=== PATIENT | female | born 1970 | race Caucasian/White ===

== ENCOUNTER 2017-12-07 17:43 | Emergency (ER) | payer BC, MEDICAID ==
[~2017-12-07] VITALS: Ht 165.1 cm; Wt 70.0 kg
[2017-12-07 18:16] LABS: BASOPHILS # (AUTO) 0.1 X10'3 (0-0.2); BASOPHILS % (AUTO) 0.9 % (0-1); EOSINOPHILS # (AUTO) 0.2 X10'3 (0-0.9); EOSINOPHILS % (AUTO) 2.1 % (0-6); HEMATOCRIT 41.3 % (35.0-45.0); HEMOGLOBIN 14.6 g/dl (12.0-16.0); LYMPHOCYTES # (AUTO) 2.2 X10'3 (1.1-4.8); LYMPHOCYTES % (AUTO) 25.1 % (21-51); MEAN CORPUSCULAR HEMOGLOBIN 30.4 PG (27.0-31.0); MEAN CORPUSCULAR HGB CONC 35.2 % (33.0-36.5); MEAN CORPUSCULAR VOLUME 86.3 FL (78-98); MEAN PLATELET VOLUME 8.2 FL (7.4-10.4); MONOCYTES # (AUTO) 0.6 X10'3 (0-0.9); MONOCYTES % (AUTO) 6.5 % (2-12); NEUTROPHILS # (AUTO) 5.8 X10'3 (1.8-7.7); NEUTROPHILS % (AUTO) 65.4 % (42-75); PLATELET COUNT 311 X10'3 (140-440); RED BLOOD COUNT 4.79 X10'6 (4.20-5.60); RED CELL DISTRIBUTION WIDTH 12.4 % (11.5-14.5); WHITE BLOOD COUNT 8.9 X10'3 (4.5-11.0)
[2017-12-07 18:28] LABS: INR 0.9 INR; PARTIAL THROMBOPLASTIN TIME 25 SECONDS (22-32); PROTHROMBIN TIME 9.4 SECONDS (9.0-12.0)
[2017-12-07 18:37] LABS: ALANINE AMINOTRANSFERASE 29 U/L (12-78); ALBUMIN 4.2 G/DL (3.4-5.0); ALBUMIN/GLOBULIN RATIO 1.2 (1.1-1.5); ALKALINE PHOSPHATASE 74 IU/L (46-116); ANION GAP 8 (8-16); ASPARTATE AMINO TRANSFERASE 13 U/L (10-37); BILIRUBIN,TOTAL 0.3 MG/DL (0.1-1.0); BLOOD UREA NITROGEN 14 MG/DL (7-18); BUN/CREATININE RATIO 17.5 (6.6-38.0); CALCIUM 8.8 MG/DL (8.5-10.1); CHLORIDE 105 MMOL/L (99-107); GLUCOSE 95 MG/DL (70-104); POTASSIUM 3.6 MMOL/L (3.5-5.1); SODIUM 143 MMOL/L (135-145); TOTAL CARBON DIOXIDE 29.8 MMOL/L (24-32); TOTAL PROTEIN 7.7 G/DL (6.4-8.2); eGFR 76 ML/MIN
[2017-12-07] MEDS ORDERED: ketorolac tromethamine 15mg/ml inj. IV ONE (19:10)
[2017-12-07] MEDS ORDERED: iohexol 350MG/ML 100ml bottle IV ONE (20:05)
[2017-12-07 21:06] VITALS: BP 122/81
== END 2017-12-07 21:55 | disposition home or self-care (01) ==
LOC: ER 17:43
DX: R07.89 Other chest pain (principal); G89.29 Other chronic pain; F17.200 Nicotine dependence, unspecified, uncomplicated; Z90.710 Acquired absence of both cervix and uterus
CPT/HCPCS: 36415; 71045; 71275; 80053; 84484; 85025; 85379; 85610; 85730; 93005; 96374; 99285; J1885; Q9967

== ENCOUNTER 2020-04-10 05:26 | Day surgery (SDC) | payer BC, MEDICAID ==
[2020-04-01 15:12] LABS: BASOPHILS # (AUTO) 0.1 X10'3 (0-0.2); BASOPHILS % (AUTO) 0.9 % (0-1); EOSINOPHILS # (AUTO) 0.1 X10'3 (0-0.9); EOSINOPHILS % (AUTO) 1.1 % (0-6); LYMPHOCYTES # (AUTO) 2.1 X10'3 (1.1-4.8); LYMPHOCYTES % (AUTO) 26.7 % (21-51); MEAN CORPUSCULAR HEMOGLOBIN 30.5 PG (27.0-31.0); MEAN CORPUSCULAR HGB CONC 34.2 g/dL (33.0-36.5); MEAN CORPUSCULAR VOLUME 89.3 FL (78-98); MEAN PLATELET VOLUME 8.7 FL (7.4-10.4); MONOCYTES # (AUTO) 0.5 X10'3 (0-0.9); MONOCYTES % (AUTO) 6.4 % (2-12); NEUTROPHILS % (AUTO) 64.9 % (42-75); PRE OP HEMATOCRIT 40.2 % (35.0-45.0); PRE OP HEMOGLOBIN 13.7 g/dL (12.0-16.0); PRE OP PLATELET COUNT 297 X10'3 (140-440); RED CELL DISTRIBUTION WIDTH 12.7 % (11.5-14.5)
[2020-04-01 15:26] LABS: ALBUMIN/GLOBULIN RATIO 1.3 (1.1-1.5); ALKALINE PHOSPHATASE 56 IU/L (46-116); BLOOD UREA NITROGEN 24 MG/DL (7-18); BUN/CREATININE RATIO 31.2 (6.6-38.0); CALCIUM 8.9 MG/DL (8.5-10.1); CHLORIDE 106 MMOL/L (99-107); CREATININE 0.77 MG/DL (0.40-0.90); PRE OP ALT 25 U/L (30-65); PRE OP ANION GAP 5 (8-16); PRE OP AST 13 U/L (10-37); PRE OP BILIRUB, TOTAL 0.3 MG/DL (0.0-1.0); PRE OP GLUCOSE 107 MG/DL (70-104); PRE OP SODIUM 142 MMOL/L (135-145); TOTAL CARBON DIOXIDE 31.2 MMOL/L (24-32); eGFR 79 ML/MIN
[~2020-04-10] VITALS: Ht 165.1 cm; Wt 68.0 kg
[2020-04-10] VITALS (9 sets, daily range): BP systolic 105–130; BP diastolic 52–95
[~2020-04-10 05:26] MED LIST: HYDR-3972 PO; IBUP-1984 PO; NAPR-996 PO; ringers solution, lacted 1,000 ML IV SCH
[2020-04-10] MEDS ORDERED: famotidine 20mg tablet PO ONE (05:30)
[2020-04-10] MEDS ORDERED: cefazolin/dext.iso 2gm/50ml 50 ML IV ONE (05:30)
[2020-04-10] MEDS ORDERED: cloNIDine hcl/PF 100mcg/ml inj ONE (07:07)
[2020-04-10] MEDS ORDERED: morphine 2 MG/ML inj. syringe IV PRN (07:15)
[2020-04-10] MEDS ORDERED: ringers solution, lacted 1,000 ML IV SCH (07:15)
[2020-04-10] MEDS ORDERED: ondansetron/PF 4mg/2ml inj IV PRN (07:15)
[2020-04-10] MEDS ORDERED: meperidine/PF 25mg/ml syringe IV PRN ×3 (07:15)
[2020-04-10] MEDS ORDERED: morphine 4 MG/ML inj SYRINge IV PRN (07:15)
[2020-04-10] MEDS ORDERED: proCHLORperazine 10 MG/2 ml inj IV PRN (07:15)
[2020-04-10] MEDS ORDERED: fentaNYL/PF 50MCG/1 ML 2ML syringe ONE (07:19)
[2020-04-10] MEDS ORDERED: midazolam 2 mg/2 ml injection ONE (07:20)
[2020-04-10] MEDS ORDERED: sevoflurane 250ml liquid IH ONE (07:32)
[2020-04-10] MEDS ORDERED: dexamethasone sod phosphate 4mg/ml inj. ONE (08:05)
[2020-04-10] MEDS ORDERED: LIDOcaine 2% (20mg/ml) 5ml vial ONE (08:05)
[2020-04-10] MEDS ORDERED: propofol inj 20 ML IV ONE (08:05)
[2020-04-10] MEDS ORDERED: LIDOcaine 1%/PF 5ML 10 MG/ML VIAL ONE (08:05)
[2020-04-10] MEDS ORDERED: ROPIVAcaine 0.5% (5mg/ml) 30ml vial ONE (08:05)
[2020-04-10] MEDS ORDERED: ondansetron/PF 4mg/2ml inj ONE (09:08)
[2020-04-10] MEDS ORDERED: morphine 10mg/ml inj. ONE (09:08)
--- NOTE | 2020-04-10 09:27 | NUR ---
Received from OR via [facility] , accompanied by Anesthesiologist JUN and report given by Anesthesiolgist. PATIENT WITH 20G PIV IN RIGHT UE RUNNING LR AT 100. DENIES PAIN AT THIS TIME. LEFT KNEE HAWK WRAP IS CDI. VSS. Addendum: 04/10/20 at 0937 by Mark Moon RN, RN Amended: Links added.
--- NOTE | 2020-04-10 10:47 | NUR ---
All dc criteria for discharge home has been met. IV taken out without complications. All questions answered regarding dc paperwork. Vss. Significant other present to take patient home. Dressings cdi and vital signs stable. Taken out via wheelchair to personal vehicle where patient taken home by family/friend. Addendum: 04/10/20 at 1116 by Mark Moon RN, RN Amended: Links added.
== END 2020-04-10 10:47 | disposition home or self-care (01) ==
LOC: PAS 05:26
PROVIDERS: ATTEND Orthopaedic Surgery
DX: S83.212A Bucket-handle tear of medial meniscus, current injury, left knee, initial encounter (principal); S83.512A Sprain of anterior cruciate ligament of left knee, initial encounter; M93.862 Other specified osteochondropathies, left lower leg; G89.29 Other chronic pain; M19.90 Unspecified osteoarthritis, unspecified site; G89.18 Other acute postprocedural pain; Z11.59 Encounter for screening for other viral diseases; Z90.710 Acquired absence of both cervix and uterus; F17.210 Nicotine dependence, cigarettes, uncomplicated; Z88.5 Allergy status to narcotic agent; Z79.899 Other long term (current) drug therapy; X58.XXXA Exposure to other specified factors, initial encounter; Y93.89 Activity, other specified; Y92.89 Other specified places as the place of occurrence of the external cause; Y99.8 Other external cause status
CPT/HCPCS: 29879; 29881; 29888; 36415; 64447; 80053; 82948; 85025; 93005; C1713; J0735; J1100; J2001; J2175; J2250; J2270; J2405; J2704; J3010; J7120; L1832; U0003; A4215; A4618; A6449; A7000; J2795